=== PATIENT | female | born 1985 | race American Indian/Alaskan Native ===

== ENCOUNTER 2019-11-11 11:49 | Emergency (ER) | payer OTHER ==
--- NOTE | 2019-11-11 12:40 | Emergency Department Report ---
Blank Doc - Documentation Documentation: 34-year-old female that presents with right knee pain. This initial assessment/diagnostic orders/clinical plan/treatment(s) is/are subject to change based on patient's health status, clinical progression and re- assessment by fellow clinical providers in the ED. Further treatment and workup at subsequent clinical providers discretion. Patient/guardians urged not to elope from the ED as their condition may be serious if not clinically assessed and managed. Initial orders include: 1- Patient sent to [facility] for further evaluation and treatment 2- xrays
--- NOTE | 2019-11-11 14:05 | XRay Report ---
RIGHT KNEE 3 VIEWS INDICATION / CLINICAL INFORMATION: knee pain. COMPARISON: None available. FINDINGS: No significant skeletal abnormality. Signer Name: Jake Lopez MD FACR Signed: 11/11/2019 2:00 PM Workstation Name: [id number]
[2019-11-11] MEDS ORDERED: KETOROLAC 30 MG/1 ML INJ IM ONE (15:45)
--- NOTE | 2019-11-11 15:53 | Emergency Department Report ---
ED Lower Extremity HPI - General Chief Complaint: Extremity Problem,Nontraumatic Stated Complaint: SWOLLEN RT KNEE Time Seen by Provider: 11/11/19 12:39 Source: patient Mode of arrival: Wheelchair Limitations: No Limitations - History of Present Illness Initial Comments: This is a 34-year-old -[place] female who presents to the emergency room with right knee pain for 2 days. Patient reports swelling and pain with weightbearing. Patient states she did a squat Monday around 1800 and was unable to stand up and put bear weight to her right lower extremity. States when she attempts to apply weight to right lower extremity it feels like a rubber band is tightening around her knee. She is applying ice with no change in symptoms. MD Complaint: knee injury Onset/Timin -: days(s) Injury: Knee: Right Place: home Severity: severe Severity scale (0 -10): 10 Improves With: NSAID, cold therapy Worsens With: weight bearing, movement Associated Symptoms: snap/pop sensation, swelling, unable to bear weight. denies: numbness, tingling Treatments Prior to Arrival: cold therapy, NSAIDS - Related Data Previous Rx's Medication Instructions Recorded Last Taken Type Ibuprofen [Motrin 600 MG tab] 600 mg PO Q8H PRN #30 tablet 11/11/19 Unknown Rx traMADoL [Ultram 50 MG tab] 50 mg PO Q6HR PRN #12 tablet 11/11/19 Unknown Rx Allergies Allergy/AdvReac Type Severity Reaction Status Date / Time No Known Allergies Allergy Unverified 11/11/19 11:52 ED Review of Systems ROS: Stated complaint: SWOLLEN RT KNEE Other details as noted in HPI Constitutional: denies: chills, fever Respiratory: denies: cough, shortness of breath, wheezing Cardiovascular: denies: chest pain, palpitations Gastrointestinal: denies: abdominal pain, nausea, diarrhea Musculoskeletal: joint swelling (Right knee), arthralgia (Right knee pain). denies: back pain Skin: denies: rash, lesions Neurological: denies: headache, weakness, paresthesias Psychiatric: denies: anxiety, depression ED Past Medical Hx - Past Medical History Previous Medical History?: No - Surgical History Past Surgical History?: No - Social History Smoking Status: Never Smoker Substance Use Type: None - Medications Home Medications: Home Medications Medication Instructions Recorded Confirmed Last Taken Type Ibuprofen [Motrin 600 MG tab] 600 mg PO Q8H PRN #30 tablet 11/11/19 Unknown Rx traMADoL [Ultram 50 MG tab] 50 mg PO Q6HR PRN #12 tablet 11/11/19 Unknown Rx ED Physical Exam - General Limitations: No Limitations General appearance: alert, in no apparent distress - Respiratory Respiratory exam: Present: normal lung sounds bilaterally. Absent: respiratory distress - Cardiovascular Cardiovascular Exam: Present: regular rate, normal rhythm. Absent: systolic murmur, diastolic murmur, rubs, gallop - GI/Abdominal GI/Abdominal exam: Present: soft, normal bowel sounds - Extremities Exam Extremities exam: Present: normal inspection - Expanded Lower Extremity Exam Right Hip exam: Present: normal inspection, full ROM Upper Leg exam: Present: normal inspection, full ROM Knee exam: Present: tenderness, swelling, pain w/ pronation/supination, posterior draw sign. Absent: full ROM (Limited range of motion secondary to pain), abrasion, laceration, ecchymosis, deformity, crepidus, dislocation, erythema, effusion, full knee extension Lower Leg exam: Present: normal inspection, full ROM Ankle exam: Present: normal inspection, full ROM Foot/Toe exam: Present: normal inspection, full ROM Neuro vascular tendon exam: Present: no vascular compromise Gait: Positive: unable to bear weight - Neurological Exam Neurological exam: Present: alert, oriented X3 - Psychiatric Psychiatric exam: Present: normal affect, normal mood - Skin Skin exam: Present: warm, dry, intact, normal color. Absent: rash ED Course Vital Signs 11/11/19 12:39 Temperature 98 F Pulse Rate 79 Respiratory 18 Rate Blood Pressure 126/91 O2 Sat by Pulse 98 Oximetry ED Lower Extremity MDM - Radiology Data Radiology results: report reviewed RIGHT KNEE 3 VIEWS INDICATION / CLINICAL INFORMATION: knee pain. COMPARISON: None available. FINDINGS: No significant skeletal abnormality. - Medical Decision Making This is a 34-year-old -[place] female who presents to the emergency room with a right knee pain and swelling for 2 days. Vitals are stable and patient in no acute distress. Work-up: X-ray of right knee. Positive drawer sign, mouth swelling and tenderness over anterior patella. No acute findings on x- ray. Symptoms may be related to possible ACL tear. Anemia immobilizer was applied to right knee. Crutches with instructions were given. Patient instructed to continue nonweightbearing to right lower extremity until follow-up with orthopedics. Referral to orthopedics for continued care. Start analgesics. Patient discharged home with strict return instructions. Critical care attestation.: If time is entered above; I have spent that time in minutes in the direct care of this critically ill patient, excluding procedure time. ED Disposition Clinical Impression: Pain and swelling of right knee Knee injury Qualifiers: Encounter type: initial encounter Laterality: right Qualified Code(s): S89.91XA - Unspecified injury of right lower leg, initial encounter Disposition: TO HOME OR SELFCARE Is pt being admited?: No Condition: Stable Instructions: Knee Pain (ED), Arthralgia (ED) Additional Instructions: Start nonweightbearing to right leg until follow-up with orthopedics. Rest, Use ice or heat on affected area for 20 minutes and off for 2 hours. Take pain medication every 6-8 hours as needed for pain. I have provided a list of orthopedic surgeons for you to follow-up with in the referral section below. Follow up with Primary Care Provider in 2-3 days. Prescriptions: Ibuprofen [Motrin 600 MG tab] 600 mg PO Q8H PRN #30 tablet PRN Reason: Pain traMADoL [Ultram 50 MG tab] 50 mg PO Q6HR PRN #12 tablet PRN Reason: Pain Referrals: [facility] [Provider Group] - 3-5 Days [facility], [Provider Group] - 3-5 Days EMEKA SHAH MD [Staff Physician] - 3-5 Days Forms: Work/School Release Form(ED) Time of Disposition: 16:02
[2019-11-11 16:39] VITALS: BP 121/86
== END 2019-11-11 16:37 | disposition home or self-care (01) ==
LOC: ED 11:49
DX: S89.91XA Unspecified injury of right lower leg, initial encounter (principal); Z79.1 Long term (current) use of non-steroidal anti-inflammatories (NSAID); Z79.899 Other long term (current) drug therapy; X58.XXXA Exposure to other specified factors, initial encounter; Y93.89 Activity, other specified; Y92.89 Other specified places as the place of occurrence of the external cause; Y99.8 Other external cause status
CPT/HCPCS: 29505; 73562; 96372; 99283; J1885